=== PATIENT | female | born 1995 | race Two or more races ===

== ENCOUNTER 2024-11-20 19:16 | Emergency (ER) | payer MEDICAID, SELFPAY ==
[2024-11-20 19:18] VITALS: BMI 29.8
[2024-11-20 19:33] VITALS: BP 130/72; PULSE 89; RESP 18; TEMP 36.9; O2SAT 99
--- NOTE | 2024-11-20 19:52 | PD.EDRME ---
Rapid Medical Screening Exam [facility] Arrival date/time: 11/20/24 19:16 29F with no significant PMH presents to ED with L index finger lac after she accidentally cut herself while cooking in the kitchen. Patient has not had a tetanus shot in the past 5 years. Chief Complaint: Wound/Laceration Time Seen by Provider: 11/20/24 20:07 Vital signs: Vital Signs Temperature 98.5 F 11/20/24 19:33 Pulse Rate 89 11/20/24 19:33 Respiratory Rate 18 11/20/24 19:33 Blood Pressure 130/72 11/20/24 19:33 Pulse Oximetry (%) 99 11/20/24 19:33 Oxygen Delivery Method Room Air 11/20/24 19:33
[2024-11-20] MEDS: DIPHTH,PERTUSS(ACELL),TET VAC 0.5 ML SYR- ADULT IMi (20:21)
--- NOTE | 2024-11-20 20:50 | EDNOTE_ITS ---
<Statement entered by Ann-Marie Badillo MD - 11/21/24 05:24> As co-signing physician, I was present and available for consult prn. I concur with the plan and care as documented by the midlevel provider. ED Wound/Laceration-RME/HPI General Chief Complaint: Wound/Laceration Stated Complaint: LACERATIONS TO LEFT HAND Time Seen by Provider: 11/20/24 20:07 Arrival date/time: 11/20/24 19:16 RME / HPI RME / HPI narrative: 29F with no significant PMH presents to ED with L index finger lac after she accidentally cut herself while cooking in the kitchen. Patient has not had a tetanus shot in the past 5 years. Patient is able to bend and extend the finger without any limitation. Incident happened few minutes prior to ER visit. Related Data Previous Rx's ?Medication ?Instructions ?Recorded acetaminophen 325 mg capsule 975 mg (3 x 325 mg) PO Q6 H PRN 02/18/20 pain #30 caps promethazine-DM 6.25 mg-15 mg/5 mL 5 ml PO Q6H PRN cou gh #473 mL 10/14/21 oral syrup Allergies Allergy/AdvReac Type Severity Reaction Status Date / Time No Known Allergies Allergy Verified 11/20/24 19:18 Review of Systems Review of Systems Narrative Review of Systems: Review of system reviewed and within normal limits except mentioned in HPI ED Exam Narrative Physical exam: VITAL SIGNS: Reviewed. GENERAL APPEARANCE: Alert and interactive, follows commands, no acute distress, HEAD AND FACE: Non-traumatic. ENT: PERRL, pink conjunctivitis, eyelid no trauma, Mucous membrane moist. NECK: Supple, nontender, no nuchal rigidity. RECTAL: Deferred. GENITAL: Deferred. NEUROLOGICAL: Gross motor function intact sensory function intact, Appropriate for age. EXTREMITIES: +2 cm gaping laceration, left index finger palmar aspect full range of motion of the finger SKIN: Color pink, dry, no rash, no lacerations, no abrasions, no contusions. LYMPHATICS: Deferred. Course Quality Measures none Orders Category Date Time Status Set Up Suture Tray STAT Care 11/20/24 19:51 Active Wound Care NOW Care 11/20/24 19:51 Active TET,DIP/PERT AC (Adult)-Tdap [Boostrix Adult (Tdap) Med 11/20/24 19:51 Discontinued Vacc] 0.5 ml IMI .ONCE ONE Vital Signs Vital signs: Vital Signs Temperature 98.5 F 11/20/24 19:33 Pulse Rate 89 11/20/24 19:33 Respiratory Rate 18 11/20/24 19:33 Blood Pressure 130/72 11/20/24 19:33 Pulse Oximetry (%) 99 11/20/24 19:33 Oxygen Delivery Method Room Air 11/20/24 19:33 Procedures -ED Laceration Laceration 1: Site: other (Left index finger) Size (cm): 2 Description: linear Depth: simple, single layer Local Anesthetic: lidocaine 1% Amount of anesthesia used (mL): 3 Pre-repair: wound explored and irrigated extensively Skin layer closed with: nylon Size (cm): 5-0 Number of sutures: 3 Technique: simple, interrupted Wound / Laceration MDM Narrative MDM Narrative:: 29F with no significant PMH presents to ED with L index finger lac after she accidentally cut herself while cooking in the kitchen. Patient has not had a tetanus shot in the past 5 years. Patient is able to bend and extend the finger without any limitation. Incident happened few minutes prior to ER visit. Repair and suturing was done by me see procedure notes Patient data External records reviewed:: None Clinical information provided by:: patient Social determinants that could affect healthcare access:: none Patient has the following chronic illnesses:: None How is presenting disease/condition affected by chronic disease/condition?: no chronic disease Evaluation data The following diagnostics were reviewed and interpreted by me:: other (specify) (None) Lab and/or radiology exams considered but not ordered:: None Interpretation Summary: None Medications / Prescriptions Medications or Prescriptions considered but not ordered:: none Medication administrations:: Medication Administration History Discontinued Medications Diphtheria/Tetanus/Acell Pertussis (Diphth,Pertuss(Acell),Tet Vac 0.5 Ml Syr- Adult) 0.5 ml IMi .ONCE ONE Stop: 11/20/24 19:52 Last Admin: 11/20/24 20:21 Dose: 0.5 ml Documented By: BERNADINE [employer] Consultations Consultation(s) initiated? (list below): No Diagnosis Wound Differential Diagnosis: laceration, abrasion and avulsion of skin Most likely diagnosis given after review of the tests above:: Finger laceration Admission Indicated Admission indicated?: not indicated Admission Request Was there a request for admission?: No Disposition Plan Disposition Plan: Discharge Discharge Attestation Discharge Attestation: The patient was given an opportunity to ask questions and understood the discharge instructions. Discharge instructions specifically effects, indications for sooner follow up or return to the emergency department, and the expected course of current diagnosis. Patient condition: Stable Discharge Plan Plan Patient Disposition: HOME (Self Care) Discharge Disposition comment: Finger laceration Prescriptions/Referrals Prescriptions/Med Rec: No Action acetaminophen 325 mg capsule 975 mg PO Q6H PRN (Reason: pain) Qty: 30 0RF promethazine-DM 6.25-15 mg/5 mL syrup 5 ml PO Q6H PRN (Reason: cough) Qty: 473 0RF Referrals: No Primary/Family,Physician [Primary Care Provider] - In 1 week Problem List Clinical Impression: Finger laceration Patient/Caregiver Discharge Instructions Discharge Activity: activity as tolerated Education Materials: ED Laceration: All Closures Additional Instructions: Thank you for the opportunity for serving you today. You are stable for discharged . You are advised to: Follow-up with your PCP in 1 to 2 days Return to ED for worsening of symptoms Increase oral fluids Daily dressing with bacitracin as needed For removal of sutures in 7 days Print Language: Kazakh Stand Alone Forms: Gia Award Info., Patient Portal Info Letter ISABELLE/LISSY Supervising Physician ISABELLE/LISSY Supervising Physician: MD Robin
== END 2024-11-20 21:15 | disposition home or self-care (01) ==
PROVIDERS: Emergency Provider Emergency Medicine
DX: S61.211A Laceration without foreign body of left index finger without damage to nail, initial encounter (principal); W45.8XXA Other foreign body or object entering through skin, initial encounter; Y93.G3 Activity, cooking and baking; Z23 Encounter for immunization
CPT/HCPCS: 12001; 90471; 90715; 99283

== ENCOUNTER 2025-05-28 23:01 | Emergency (ER) | payer MEDICAID, SELFPAY ==
[2025-05-28 23:02] VITALS: BMI 29.0
[2025-05-28 23:15] VITALS: BP 117/77; PULSE 99; RESP 18; TEMP 37.2; O2SAT 99
--- NOTE | 2025-05-28 23:42 | EDNOTE_ITS ---
ED Abdominal Pain RME/HPI General Chief Complaint: Abdominal Pain Stated complaint: DIARRHEA Time seen by provider: 05/28/25 23:18 Arrival date/time: 05/28/25 23:01 Source: patient, RN notes reviewed and old records reviewed Mode of arrival: ambulatory Limitations: no limitations RME / HPI RME / HPI narrative: 30yof presents to ED for nausea, vomiting and diarrhea since 1400 today. Daughter currently has similar symptoms. Patient c/o generalized lower abdominal cramping. She reports small amount of bright red blood in stool after multiple episodes of diarrhea. No fever or urinary symptoms reported. 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 Related Data Previous Rx's ?Medication ?Instructions ?Recorded acetaminophen 325 mg capsule 975 mg (3 x 325 mg) PO Q6 H PRN 02/18/20 pain #30 caps promethazine-DM 6.25 mg-15 mg/5 mL 5 ml PO Q6H PRN cou gh #473 mL 10/14/21 oral syrup dicyclomine 20 mg tablet 20 mg PO Q6HR PRN abdominal pain 05/29/25 #30 tabs ibuprofen 600 mg tablet 600 mg PO Q6H PRN pain #20 t abs 05/29/25 loperamide 2 mg tablet (Imodium See Rx Instructions .R oute 05/29/25 A-D) .COMPLEX PRN loose stool #20 tabs ondansetron 4 mg disintegrating 4 mg PO Q6H PRN nausea and 05/29/25 tablet vomiting #10 tabs Allergies Allergy/AdvReac Type Severity Reaction Status Date / Time No Known Allergies Allergy Verified 11/20/24 19:18 Review of Systems Review of Systems Systems Reviewed: All systems reviewed, normal except as documented Constitutional Constitutional: Denies chills and Denies fever(s) Gastrointestinal Gastrointestinal: Reports abdominal pain, Reports hematochezia, Reports loose stools, Reports nausea and Reports vomiting Genitourinary Genitourinary: Denies dysuria and Denies flank pain Past Medical History Surgical History SURGICAL: Positive Section Social History SMOKING STATUS: Never smoker SUBSTANCE USE: does not use ALCOHOL: Never Past Medical History Comments PMH COMMENT: denies pshx ED Exam General Limitations: Present no limitations General appearance: Present alert and in no apparent distress Head Head exam: Present atraumatic and normocephalic Eye Eye exam: Present normal appearance, PERRL and EOMI ENT ENT exam: Present normal exam and mucous membranes moist Neck Neck exam: Present normal inspection and full ROM Chest Chest inspection: Present normal inspection and symmetric chest wall rise Respiratory Respiratory exam: Present normal lung sounds bilaterally; Absent respiratory distress Cardiovascular Cardiovascular exam: Present regular rate and normal rhythm Abdominal Exam Abdominal exam: Present soft; Absent distention, tenderness, guarding or rebound Extremities Exam Extremities exam: Present normal inspection and full ROM Neurological Exam Neurological exam: Present alert and oriented X3 Psychiatric Psychiatric exam: Present normal affect and normal mood Skin Skin exam: Present warm, dry, intact and normal color Course Course Course Narrative: 0030: Patient drinking 7-Up in waiting room, tolerating po Quality Measures none Orders Category Date Time Status CBC Stat Lab 05/28/25 23:41 Completed CMP [Comprehensive Metabolic Panel] Stat Lab 05/28/25 23:41 Completed HCG Qualitative,Urine Stat Lab 05/29/25 00:20 Completed Lipase Stat Lab 05/28/25 23:41 Completed UA [Urinalysis] Stat Lab 05/29/25 00:20 Completed Dicyclomine [Bentyl] Med 05/28/25 23:42 Discontinued 20 mg PO X1 ONE Ketorolac Inj [Toradol Inj] Med 05/28/25 23:41 Discontinued 30 mg IM X1 ONE Ondansetron Odt [Zofran Odt] Med 05/28/25 23:41 Discontinued 4 mg PO X1 ONE Vital Signs Vital signs: Vital Signs Temperature 98.9 F 05/28/25 23:15 Pulse Rate 99 05/28/25 23:15 Respiratory Rate 18 05/28/25 23:15 Blood Pressure 117/77 05/28/25 23:15 Pulse Oximetry (%) 99 05/28/25 23:15 Oxygen Delivery Method Room Air 05/28/25 23:15 Abdominal Pain MDM MDM Narrative MDM Narrative:: 30yof presents to ED for nausea, vomiting and diarrhea since 1400 today. Daughter currently has similar symptoms. Patient c/o generalized lower abdominal cramping. She reports small amount of bright red blood in stool after multiple episodes of diarrhea. No fever or urinary symptoms reported. 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 Patient reassessed, symptoms improved, tolerating p.o. Labs and exam reassuring. Most likely viral etiology of symptoms. Encouraged adequate fluids, symptomatic treatment prn. PCP follow-up as needed. Stable for discharge, RTED precautions given. Patient data External records reviewed:: [facility] previous records (11/20/2024 ED visit for finger laceration) Clinical information provided by:: patient Social determinants that could affect healthcare access:: other (specify) (poor access to healthcare) Patient has the following chronic illnesses:: none How is presenting disease/condition affected by chronic disease/condition?: no chronic disease Evaluation data The following diagnostics were reviewed and interpreted by me:: lab results Lab and/or radiology exams considered but not ordered:: CT abdomen/pelvis: Abdomen nontender on exam Interpretation Summary: Mild leukocytosis suspect 2/2 recent vomiting/mild dehydration No anemia Negative upreg UA +ketones, +leuks/squamous cells c/w contaminant Medications / Prescriptions Medications or Prescriptions considered but not ordered:: No antibiotics recommended at this time Medication administrations:: Medication Administration History Discontinued Medications Dicyclomine HCl (Dicyclomine 10 Mg Capsule) 20 mg PO X1 ONE Stop: 05/28/25 23:43 Last Admin: 05/29/25 00:26 Dose: 20 mg Documented By: WENDI Ketorolac Tromethamine (Ketorolac Inj 30 Mg/Ml Vial) 30 mg IM X1 ONE Stop: 05/28/25 23:42 Last Admin: 05/29/25 01:33 Dose: Not Given Documented By: MINGO Non-Admin Reason: Patient Refused Ondansetron HCl (Ondansetron Odt 4 Mg Tabrap) 4 mg PO X1 ONE; Protocol Stop: 05/28/25 23:42 Last Admin: 05/29/25 00:26 Dose: 4 mg Documented By: WENDI Above medications administered in ED Consultations Consultation(s) initiated? (list below): No Diagnosis Differential diagnosis abdominal pain: other (Gastroenteritis, food poisoning, viral illness, UTI, dehydration, electrolyte imbalance, appendicitis, mesenteric adenitis, kidney stone, constipation) Most likely diagnosis given after review of the tests above:: Gastroenteritis Admission Indicated Admission indicated?: not indicated Admission Request Was there a request for admission?: No Disposition Plan Disposition Plan: Discharge Discharge Attestation Discharge Attestation: The patient and all family members were given an opportunity to ask questions and understood the discharge instructions. Discharge instructions specifically effects, indications for sooner follow up or return to the emergency department, and the expected course of current diagnosis. Patient condition: Stable Discharge Plan Plan Patient Disposition: HOME (Self Care) Patient condition on transfer: Stable Prescriptions/Referrals Prescriptions/Med Rec: New dicyclomine 20 mg tablet 20 mg PO Q6HR PRN (Reason: abdominal pain) Qty: 30 0RF loperamide [Imodium A-D] 2 mg tablet See Rx Instructions .ROUTE .COMPLEX PRN (Reason: loose stool) Qty: 20 0RF Rx Instructions: 2 mg orally as needed ;administer after each loose stool until symptoms controlled; do not exceed 8 mg (4 tabs) per 24 hrs ondansetron 4 mg tablet,disintegrating 4 mg PO Q6H PRN (Reason: nausea and vomiting) Qty: 10 0RF ibuprofen 600 mg tablet 600 mg PO Q6H PRN (Reason: pain) Qty: 20 0RF No Action acetaminophen 325 mg capsule 975 mg PO Q6H PRN (Reason: pain) Qty: 30 0RF promethazine-DM 6.25-15 mg/5 mL syrup 5 ml PO Q6H PRN (Reason: cough) Qty: 473 0RF Referrals: No Primary/Family,Physician [Primary Care Provider] - In 1 week Problem List Clinical Impression: Gastroenteritis Patient/Caregiver Discharge Instructions Education Materials: ED Gastroenteritis, Viral (Adult) Print Language: Korean Stand Alone Forms: Gia Award Info., Work/School Release, Patient Portal Info Letter PA/ELECTRONIC FIELD SERVICE ENGINEER Supervising Physician PA/ELECTRONIC FIELD SERVICE ENGINEER Supervising Physician: Adolph
[2025-05-29] MEDS: ONDANSETRON ODT 4 MG TABRAP PO (00:26)
[2025-05-29] MEDS: DICYCLOMINE 10 MG CAPSULE 20 MG PO (00:26)
[2025-05-29 00:32] LABS: Collection Type, Urine Clean Catch
[2025-05-29 00:38] LABS: Basophils # (Auto) 0.0 Thou/mm3 (0.0-0.2); Basophils % (Auto) 0 % (0-2.5); Eosinophils # (Auto) 0.2 Thou/mm3 (0.0-0.5); Eosinophils % (Auto) 2 % (0-10); Hematocrit 42.2 % (36.0-46.0); Hemoglobin 13.9 g/dL (12.0-16.0); Immature Granulocytes Auto 0.04 Thou/mm3 (0.00-0.00); Lymphocytes # (Auto) 0.8 Thou/mm3 (1.0-4.8); Lymphocytes % (Auto) 6 % (10-50); Mean Corpuscular HGB Conc 32.9 g/dl (31.0-37.0); Mean Corpuscular Hemoglobin 28.9 pg (25.0-35.0); Mean Corpuscular Volume 88 fL (80-100); Monocytes # (Auto) 0.6 Thou/mm3 (0.0-0.8); Monocytes % (Auto) 4 % (0-12); Neutrophils # (Auto) 12.6 Thou/mm3 (1.8-7.7); Neutrophils % (Auto) 88 % (37-80); Nucleated Red Blood Cell # 0.00 Thou/mm3 (0.00-0.00); Nucleated Red Blood Cell % 0 /100 WBC (0); Platelet Count 313 Thou/mm3 (140-440); RDW Standard Deviation 40.8 fL (36.4-46.3); Red Blood Count 4.81 Miln/mm3 (4.00-5.20); White Blood Count 14.3 Thou/mm3 (3.6-11.0)
[2025-05-29 00:44] LABS: Bacteria,Urine Rare; Bilirubin,Urine Negative (Negative); Blood,Urine Negative (Negative); Clarity,Urine Turbid (Clear/Hazy); Color,Urine Yellow (Lt Yel-Yel); Glucose, Urine Negative (Negative); Ketones,Urine 2+ (Negative); Leukocyte Esterase,Urine Positive (Negative); Nitrite,Urine Negative (Negative); PH,Urine 5.5 (5.0-7.0); Protein,Urine 1+ (Neg - Trace); RBC,Urine 7 /hpf (0-3); Specific Gravity,Urine 1.032 (1.001-1.035); Squamous Epithelial Cell,Urine 11 /hpf (0-5); Urobilinogen,Urine Negative mg/dL (0.0-1.0); WBC,Urine 5 /hpf (0-5)
[2025-05-29 00:46] LABS: HCG Qualitative,Urine Negative
[2025-05-29 00:56] LABS: Alanine Aminotransferase 15 U/L (10-49); Albumin, Serum 4.7 gm/dL (3.5-5.0); Albumin/Globulin Ratio 2.0 (1.2-2.2); Alkaline Phosphatase 78 U/L (46-116); Anion Gap 9 (7-16); Aspartate Amino Transferase 22 U/L (0-34); BUN/Creatinine Ratio 11 Ratio (12-20); Bilirubin,Total 0.6 mg/dL (0.3-1.2); Blood Urea Nitrogen 8 mg/dL (9-23); Calcium 9.0 mg/dL (8.3-10.6); Calcium (Corrected) 9.0 mg/dL (8.5-10.1); Carbon Dioxide 23.8 mMol/L (20.0-31.0); Chloride 110 mMol/L (98-107); Creatinine (Component) 0.7 mg/dL (0.6-1.3); Estimated Creatinine Clearance 111.3 mL/min (>60); Globulin 2.3 gm/dL (2.3-3.5); Glucose 116 mg/dL (74-106); Lipase 34 U/L (12-53); Osmolality,Calculated 284 (275-295); Potassium 3.9 mMol/L (3.4-5.1); Sodium 143 mMol/L (136-145); Total Protein 7.0 gm/dL (5.7-8.2); eGFR > 60 See Note
== END 2025-05-29 01:35 | disposition home or self-care (01) ==
PROVIDERS: Physician Assistant; Emergency Provider Emergency Medicine
DX: A08.4 Viral intestinal infection, unspecified (principal)
CPT/HCPCS: 36415; 80053; 81001; 81025; 83690; 85025; 99282; Q0162; A9270

== ENCOUNTER 2025-06-01 12:12 | Emergency (ER) | payer MEDICAID, SELFPAY ==
[2025-06-01 12:12] VITALS: BMI 29.0
[2025-06-01 12:31] VITALS: BP 124/60; PULSE 89; RESP 18; TEMP 36.8; O2SAT 100
--- NOTE | 2025-06-01 13:44 | EDNOTE_ITS ---
<Statement entered by Ann-Marie Badillo MD - 06/01/25 17:57> As co-signing physician, I was present and available for consult prn. I concur with the plan and care as documented by the midlevel provider. Upper Extremity Injury RME/HPI General Chief Complaint: Hand/Wrist Problems Stated Complaint: CUT TO PALM TODAY Time Seen by Provider: 06/01/25 12:19 Source: patient Arrival date/time: 06/01/25 12:12 30-year-old female with no known medical history presents to the emergency room with a chief complaint of a 0.5 cm laceration to the center of the palm of her left hand. Patient states she cut it 1 hour ago while cutting vegetables. Mode of arrival: ambulatory Limitations: no limitations Related Data Previous Rx's ?Medication ?Instructions ?Recorded acetaminophen 325 mg capsule 975 mg (3 x 325 mg) PO Q6 H PRN 02/18/20 pain #30 caps promethazine-DM 6.25 mg-15 mg/5 mL 5 ml PO Q6H PRN cou gh #473 mL 10/14/21 oral syrup dicyclomine 20 mg tablet 20 mg PO Q6HR PRN abdominal pain 05/29/25 #30 tabs ibuprofen 600 mg tablet 600 mg PO Q6H PRN pain #20 t abs 05/29/25 loperamide 2 mg tablet (Imodium See Rx Instructions .R oute 05/29/25 A-D) .COMPLEX PRN loose stool #20 tabs ondansetron 4 mg disintegrating 4 mg PO Q6H PRN nausea and 05/29/25 tablet vomiting #10 tabs Allergies Allergy/AdvReac Type Severity Reaction Status Date / Time No Known Allergies Allergy Verified 06/01/25 12:14 Review of Systems Review of Systems Systems Reviewed: All systems reviewed, normal except as documented Constitutional Constitutional: Reports system reviewed and no additional complaints, except as documented, Denies fatigue, Denies fever(s), Denies headache(s) and Denies weakness Eyes Eyes: Reports system reviewed and no additional complaints, except as documented, Denies blurry vision and Denies change in vision ENT Ears, Nose, Mouth, and Throat: Reports system reviewed and no additional complaints, except as documented, Denies otalgia, Denies headache(s), Denies nasal congestion, Denies throat swelling and Denies vertigo Cardiovascular Cardiovascular: Reports system reviewed and no additional complaints, except as documented, Denies chest pain, Denies dyspnea and Denies dyspnea on exertion Respiratory Respiratory: Reports system reviewed and no additional complaints, except as documented, Denies chest congestion, Denies cough, Denies dyspnea, Denies dyspnea on exertion and Denies wheezing Gastrointestinal Gastrointestinal: Reports system reviewed and no additional complaints, except as documented, Denies abdominal pain, Denies cramping, Denies nausea and Denies vomiting Genitourinary Genitourinary: Reports system reviewed and no additional complaints, except as documented Musculoskeletal Musculoskeletal: Reports system reviewed and no additional complaints, except as documented and Denies back pain Integumentary/Breasts Skin/Breast: Reports system reviewed and no additional complaints, except as documented and Reports wounds Neurologic Neurologic: Reports system reviewed and no additional complaints, except as documented, Denies confusion, Denies headache(s), Denies lack of coordination, Denies vertigo and Denies weakness Psychiatric Psychiatric: Reports system reviewed and no additional complaints, except as documented, Denies anxiety, Denies confusion, Denies depression, Denies paranoia, Denies suicidal ideation and Denies tactile hallucinations Endocrine Endocrine: Reports system reviewed and no additional complaints, except as documented and Denies fatigue Hematologic/Lymphatic Hematologic/Lymphatic: Reports system reviewed and no additional complaints, except as documented and Denies lymphadenopathy Allergic/Immunologic Allergic/Immunologic: Reports system reviewed and no additional complaints, except as documented, Denies throat swelling, Denies urticaria and Denies wheezing Past Medical History Past Medical History CARDIAC: Negative Congestive Heart Failure RESPIRATORY: Negative Chronic Obstructive Pulmonary Disease (COPD) GENITOURINARY: Negative Renal Disease ENDOCRINE: Negative Diabetes Mellitus Type 1 or Diabetes Mellitus Type 2 OTHER HISTORY: Negative Autoimmune Disease, Blood Transfusions, Blood Transfusion Reaction or Anesthesia Reactions Family History FAMILY HISTORY: Negative Family Psychiatric Problems, Family Respiratory Disorders, Family Cardiac Disorders, Family Gastrointestinal Problems, Family Cancer, Family Surgery or Family Anesthesia Reaction Surgical History SURGICAL: Positive Section Social History SMOKING STATUS: Never smoker SECOND HAND EXPOSURE: No SUBSTANCE USE: does not use ED Exam General Limitations: Present no limitations General appearance: Present alert and in no apparent distress Head Head exam: Present atraumatic Eye Eye exam: Present normal appearance, PERRL and EOMI ENT ENT exam: Present normal exam, normal oropharynx and mucous membranes moist Neck Neck exam: Present normal inspection, full ROM and trachea midline Chest Chest inspection: Present normal inspection and symmetric chest wall rise Respiratory Respiratory exam: Present normal lung sounds bilaterally Cardiovascular Cardiovascular exam: Present regular rate, normal rhythm and normal heart sounds Abdominal Exam Abdominal exam: Present soft and normal bowel sounds Extremities Exam Extremities exam: Present normal inspection and full ROM Expanded Upper Extremity Exam Shoulder exam: Present normal inspection Arm exam: Present normal inspection Elbow exam: Present normal inspection Forearm/Wrist exam: Present normal inspection Hand exam: Present laceration Hand L/R front image: 2 1. laceration (0.5 cm laceration to the left palm) Back Exam Back exam: Present normal inspection and full ROM Neurological Exam Neurological exam: Present alert, oriented X3 and CN II-XII intact Psychiatric Psychiatric exam: Present normal affect and normal mood Skin Skin exam: Present warm, dry, intact and normal color Course Quality Measures none Orders Category Date Time Status Dermabond Set Up NOW Care 06/01/25 12:38 Active Steri-Strips to: X1 Care 06/01/25 12:38 Active Wound Care X1 Care 06/01/25 12:38 Active Vital Signs Vital signs: Vital Signs Temperature 98.2 F 06/01/25 12:31 Pulse Rate 89 06/01/25 12:31 Respiratory Rate 18 06/01/25 12:31 Blood Pressure 124/60 06/01/25 12:31 Pulse Oximetry (%) 100 06/01/25 12:31 Oxygen Delivery Method Room Air 06/01/25 12:31 Extremity Injury MDM Narrative MDM Narrative:: 30-year-old female with no known medical history presents to the emergency room with a chief complaint of a 0.5 cm laceration to the center of the palm of her left hand. Patient states she cut it 1 hour ago while cutting vegetables. Patient is hemodynamically stable and in no apparent distress The laceration occured 1 hour ago The mechanism of injury was cutting it with a knife while cutting vegetables Sensation is intact. There is full ROM. There is no exposed tendons. No foreign bodies. No sutures were placed. Steri-Strips and Dermabond were used to close and approximate the wound. A dressing was placed. There were no complications. Patient was educated to keep the area clean and dry for 24 hours, then clean daily with soap and water. Patient was educated to return for any signs of infection including swelling pain redness pus or fever and to make an appointment with primary care provider in 48 hours. Patient was educated to follow up with primary or return to emergency room for suture removal in the next 7-10 days. Patient data External records reviewed:: [facility] previous records Clinical information provided by:: patient Social determinants that could affect healthcare access:: none Patient has the following chronic illnesses:: No chronic illness How is presenting disease/condition affected by chronic disease/condition?: no chronic disease Evaluation data The following diagnostics were reviewed and interpreted by me:: lab results and radiology exam(s) Lab and/or radiology exams considered but not ordered:: Labs and radiology exams considered and ordered Interpretation Summary: N/A Medications / Prescriptions Medications or Prescriptions considered but not ordered:: No medication given Medication administrations:: No medication given Consultations Consultation(s) initiated? (list below): No Diagnosis Upper Extremity Injury Differential Diagnosis: other (Laceration/abrasion) Most likely diagnosis given after review of the tests above:: Laceration Admission Indicated Admission indicated?: not indicated Admission Request Was there a request for admission?: No Disposition Plan Disposition Plan: Discharge Discharge Attestation Discharge Attestation: The patient and all family members were given an opportunity to ask questions and understood the discharge instructions. Discharge instructions specifically effects, indications for sooner follow up or return to the emergency department, and the expected course of current diagnosis. Patient condition: Stable Discharge Plan Plan Patient Disposition: HOME (Self Care) Discharge Disposition comment: Stable Prescriptions/Referrals Prescriptions/Med Rec: No Action acetaminophen 325 mg capsule 975 mg PO Q6H PRN (Reason: pain) Qty: 30 0RF promethazine-DM 6.25-15 mg/5 mL syrup 5 ml PO Q6H PRN (Reason: cough) Qty: 473 0RF dicyclomine 20 mg tablet 20 mg PO Q6HR PRN (Reason: abdominal pain) Qty: 30 0RF loperamide [Imodium A-D] 2 mg tablet See Rx Instructions .ROUTE .COMPLEX PRN (Reason: loose stool) Qty: 20 0RF Rx Instructions: 2 mg orally as needed ;administer after each loose stool until symptoms controlled; do not exceed 8 mg (4 tabs) per 24 hrs ondansetron 4 mg tablet,disintegrating 4 mg PO Q6H PRN (Reason: nausea and vomiting) Qty: 10 0RF ibuprofen 600 mg tablet 600 mg PO Q6H PRN (Reason: pain) Qty: 20 0RF Problem List Clinical Impression: Laceration Patient/Caregiver Discharge Instructions Additional Instructions: Please follow-up with your primary care provider in the next 24 to 48 hours Please keep the area clean and dry for the next 24 hours. Afterwards you can clean it with soap and water. Pat dry. When possible elevate the extremity/area as this can reduce swelling. For any evidence of worsening signs or symptoms return to the emergency room immediately Print Language: Indonesian Stand Alone Forms: [employer] Award Info., Work/School Release, Patient Portal Info Letter PA/INSTRUCTIONAL PARAPROFESSIONAL Supervising Physician PA/INSTRUCTIONAL PARAPROFESSIONAL Supervising Physician: Dr. Rae
== END 2025-06-01 14:13 | disposition home or self-care (01) ==
LOC: SERX 13:48
PROVIDERS: Emergency Provider Emergency Medicine
DX: S61.412A Laceration without foreign body of left hand, initial encounter (principal); W45.8XXA Other foreign body or object entering through skin, initial encounter
CPT/HCPCS: 12001; 99281